=== PATIENT | male | born 1975 | race Caucasian/White ===

== ENCOUNTER 2017-08-08 15:19 | Emergency (ER) | payer SELFPAY ==
[~2017-08-08] VITALS: Ht 170.2 cm; Wt 83.6 kg
[2017-08-08 15:21] VITALS: BP 142/76; PULSE 66; RESP 16; TEMP 98.2; O2SAT 98
--- NOTE | 2017-08-08 16:26 | PD ---
HPI Chief Complaint: Injury Time Seen by Provider: 16:07 Travel History International Travel<30 days: No Contact w/Intl Traveler<30days: No Traveled to known affect area: No History of Present Illness HPI This patient complains of an injury to his left foot. Duration 2 hours. Symptoms severity is mild. This patient tripped over a toolbox and lacerated his left foot. He denies having any significant pain. He is ambulatory. He denies other injury or complaint. No alleviating factors. no Exacerbating factors. PFSH Past Medical History Medical History: Denies Significant Hx Hx Anticoagulant Therapy: No Diabetes: No Tetanus Vaccination: > 5 Years Influenza Vaccination: No Past Surgical History Surgical History: No Previous Surgery Social History Alcohol Use: Yes (OCCAS. BEER) Tobacco Use: No (quit 5 yrs ago smoked 1/2 ppd for approx 15 yrs) Substance Use: No Allergies-Medications (Allergen,Severity, Reaction): Coded Allergies: No Known Allergies (Verified Allergy, Unknown, 08/08/17) Reported Meds & Prescriptions Reported Meds & Active Scripts Active No Active Prescriptions or Reported Medications Review of Systems General / Constitutional: No: Fever Eyes: No: Visual changes HENT: No: Headaches Cardiovascular: No: Chest Pain or Discomfort Respiratory: No: Shortness of Breath Gastrointestinal: No: Abdominal Pain Genitourinary: No: Dysuria Musculoskeletal: No: Pain Skin: No Rash Neurologic: No: Weakness Psychiatric: No: Depression Endocrine: No: Polydipsia Hematologic/Lymphatic: No: Easy Bruising Physical Exam Narrative Psych: Normal mood and affect. Normal insight and judgment. SKIN: Focused skin assessment reveals no rash or ulcers. Skin is warm and dry. Palpation shows no induration or nodules. Left foot: No bruising or swelling or deformity. No bony tenderness. Neurovascularly intact. He has a 1 cm laceration in the webspace between toes 2 and 3 on the left foot Data Data Last Documented VS Vital Signs Date Time Temp Pulse Resp B/P (MAP) Pulse Ox O2 Delivery O2 Flow Rate FiO2 08/08/17 15:41 16 99 Room Air 08/08/17 15:21 98.2 66 142/76 (98) Orders Orders Lidocaine 1% Inj (Xylocaine 1% Inj) (08/08/17 17:00) Lidocaine 1% Inj (Xylocaine 1% Inj) (08/08/17 17:00) Wound Care (08/08/17 17:12) MDM Medical Decision Making Medical Screen Exam Complete: Yes Emergency Medical Condition: Yes Medical Record Reviewed: Yes Differential Diagnosis Laceration, fracture, contusion Narrative Course I have reviewed the patient's electronic medical record. ANGELICA Power repaired the laceration. Follow-up with PMD Diagnosis Primary Impression: Laceration of left foot excluding toes without complication Qualified Codes: S91.312A - Laceration without foreign body, left foot, initial encounter Additional Instructions: The patient was advised to follow up with their physician and return if they worsen. Med/Other Pt SpecificInfo: Other Scripts No Active Prescriptions or Reported Meds Disposition: 01 DISCHARGE HOME Condition: Stable Adeel Rodrigez MD Aug 08, 2017 16:26
[2017-08-08] MEDS ORDERED: LIDOCAINE HCL 1% 20 ML VIAL INFIL ONE (17:00)
[2017-08-08] MEDS ORDERED: LIDOCAINE HCL 1% 30 ML VIAL INFIL ONE (17:00)
--- NOTE | 2017-08-08 17:25 | PD ---
Physical Exam Date Seen by Provider: Aug 08, 2017 Time Seen by Provider: 17:16 Narrative Well-nourished, well-developed 42-year-old male patient resting on stretcher in no acute distress. I was asked by provider, Dr. Rodrigez to repair the laceration the patient sustained to the webbing of his left foot between the second and third digit. Data Data Last Documented VS Vital Signs Date Time Temp Pulse Resp B/P (MAP) Pulse Ox O2 Delivery O2 Flow Rate FiO2 08/08/17 15:41 16 99 Room Air 08/08/17 15:21 98.2 66 142/76 (98) Orders Orders Lidocaine 1% Inj (Xylocaine 1% Inj) (08/08/17 17:00) Lidocaine 1% Inj (Xylocaine 1% Inj) (08/08/17 17:00) Wound Care (08/08/17 17:12) MDM Supervised Visit with ARASELI: Yes Narrative Course I was asked by provider, Dr. Rodrigez to repair a laceration the patient sustained on the webbing of his left foot between his second and third digit. The laceration is approximately 4 cm. The laceration is repaired. Please see my procedural narrative. Dr Rodrigez retains care of this patient. Please see his documentation for further details and disposition. Procedures Procedure Narrative LACERATION LOCATION: Webbing of left foot between the second and third digit LENGTH: 4 cm NUMBER OF STITCHES/ISSAC: 3 x 4. 0 Prolene REPAIR: The area of the laceration was prepped with Betadine and sterilely draped. The laceration was infiltrated with 1% lidocaine. The wound was copiously irrigated and explored without evidence of foreign body, tendon injury or neurovascular injury. The wound was closed using 3 simple interrupted sutures using 4. 0 Prolene. This was a single layer repair. A sterile dressing was applied. The patient was advised to keep the dressing clean and dry. Patient tolerated the procedure well. Scripts No Active Prescriptions or Reported Meds Jannet Ayala Aug 08, 2017 17:25
[2017-08-08] MEDS ORDERED: TETANUS/DIPHTHERIA TOXOID ADULT 0.5 ML VIAL IM ONE (17:30)
[2017-08-08] MEDS ORDERED: LIDOCAINE HCL 1% 50 ML VIAL INFIL ONE (18:00)
== END 2017-08-08 19:46 | disposition home or self-care (01) ==
LOC: PHED 15:19
DX: S91.312A Laceration without foreign body, left foot, initial encounter (principal); Z23 Encounter for immunization; W22.8XXA Striking against or struck by other objects, initial encounter
CPT/HCPCS: 12002; 90471; 90714